=== PATIENT | female | born 1945 | race Caucasian/White ===

== ENCOUNTER 2024-06-19 15:08 | Emergency (ER) | payer OTHER, SELFPAY ==
[2024-06-19 15:19] VITALS: BP 146/97
[2024-06-19 16:52] VITALS: BMI 30.7
--- NOTE | 2024-06-19 17:35 | ED.GENMED ---
History of Present Illness
General
Chief Complaint: Fall
Source: patient and family
Exam Limitations: none
Time Seen by Provider: 06/19/24 16:54
Nursing documentation reviewed up to this point in time: agreed with
History of Present Illness
History of Present Illness:
78-year-old female with a past medical history as document presents to the emergency department for evaluation after mechanical fall. Patient tripped on a step and fell forward landing on her face. No loss of consciousness. She has mild headache,
pain in the face/nose. She has swelling and deviation of the nose towards the left. She did have transient epistaxis. She denies any tongue trauma or dental trauma. She denies any significant neck pain. She denies any new chest, back, abdominal
pain. Denies any new pain in her extremities. Denies being on blood thinners.
Review of Systems
Review of Systems
All Other Systems: ROS reviewed and negative except as documented in HPI and ROS
EENT: Reports other (Facial pain and swelling)
Respiratory: Denies trouble breathing
Cardiac: Denies chest pain
ABD/GI: Denies abdominal pain, nausea or vomiting
Musculoskeletal: Denies neck pain or back pain
Neurological: Reports headache
Phy Exam
Physical Exam
Physical Exam:
General: Awake, alert, GCS 15; no acute distress
Head: Normocephalic, patient has hematoma in the center of her forehead and overlying abrasion; she has bruising and swelling of the nasal bridge with deviation of the nose slightly towards the left; she has some bruising along the right maxillary
region/infraorbital region
Eyes: Conjunctiva normal, EOMI, pupils equal round reactive to light bilaterally
Nose: Swelling and bruising of the nasal bridge with some deviation of the nose towards the left; no septal hematoma
Throat: Airway intact, handling secretions
Neck: Trachea midline, no midline cervical spine tenderness, able to rotate neck through good range of motion with minimal discomfort
Lungs: Breathing comfortably no distress
Heart: No significant chest wall tenderness or instability
Back: No signs of trauma to the back or flank and no tenderness in the thoracic or lumbar spine
Abd: Soft, non distended, nontender
Neuro: No gross deficits
Skin: Forehead abrasion, bruising to the face, minor abrasion to the left paz
Extremities: Abrasion to the left paz but extremities otherwise atraumatic with no tenderness and good range of motion
Scores
Heart Failure Risk
Heart Failure Risk Score: Not Applicable
Heart Score for Chest Pain Patients
STEMI patient?: Not applicable
Withdrawal Assessment of Alcohol
Withdrawal Assessment Completed?: Not applicable
Course
Orders/Labs/Results
Orders:
Orders
06/19/24 15:29
CT Facial Bones W/o Iv Contras Urgent
Comment:
Reason For Exam: pain injury
CT Head W/o Iv Contrast Urgent
Comment:
Reason For Exam: head injury
06/19/24 15:32
CT Cervical Spine W/o Iv Contr Urgent
Comment:
Reason For Exam: fall neck pain
06/19/24 17:11
Tetanus/Diphth/Acelpertussis [Adacel] 0.5 ml IM .ONCE ONE
Vital Signs
Initial and Last Documented VS:
Initial Vital Signs
Temp Pulse Resp BP Pulse Ox
36.7 C 85 16 146/97 96
06/19/24 15:19 06/19/24 15:19 06/19/24 15:19 06/19/24 15:19 06/19/24 15:19
Last Documented Vital Signs
Temp Pulse Resp BP Pulse Ox
36.7 C 85 16 146/97 96
06/19/24 15:19 06/19/24 15:19 06/19/24 15:19 06/19/24 15:19 06/19/24 15:19
MDM/Problems Addressed
Differential Diagnosis Includes:
Nasal fracture, facial fracture, intracranial hemorrhage, cervical spine injury
MDM/Problems Addressed:
78-year-old female presents after mechanical fall with facial trauma. Vitals and exam as above. CT head, face, cervical spine reviewed�patient has displaced nasal fracture but no acute intracranial pathology and no cervical spine injuries.
Discussed with ENT will plan to discharge home on prophylactic antibiotic, advised patient to ice nose aggressively and will refer to ENT office for follow-up Tuesday for delayed reduction of nasal fracture once swelling is improved. Updated
patient's tetanus here. We did discuss incidental findings on CT report and provided a copy of her report in hand as well as fax the report to her primary doctor for follow-up. Patient comfortable with plan as above. All questions answered.
*Radiology
Radiology exam reviewed: radiology read reviewed
*Pulse Oximetry
Patient hypoxic: no
*Critical Care Note
Total Time (30-74mins, 75-104mins- exclusive of procedures): Not Applicable
Data Reviewed
Source: patient and family
Patient Management
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
ED Attending Note
-
Portions of this chart may have been created with voice recognition software.� Occasional wrong word or��sound alike� substitutions may have occurred due to the inherent limitations of voice recognition software.
Discharge Plan
Departure
Patient Disposition: Home (Routine Discharge)
Date of Disposition: 06/19/24
Time of Disposition: 17:25
Patient with high blood pressure during this ER visit?: Yes
Discharge Problem:
Fracture of nasal bone, Skin abrasion
Instructions: Skin Abrasions (DC), Nose Fracture ED
Prescriptions:
New
amoxicillin-pot clavulanate 875-125 mg tablet
1 tab PO BID Qty: 14 0RF
Referrals:
Felix Turner MD [Active] - Call in 1-3 days for appt (ENT--call for appointment on Tuesday)
Activity Restrictions/Additional Instructions:
Thank you for visiting the Emergency Department at [facility].
1. Please schedule a follow up appointment as directed. Call first thing tomorrow morning to make an appointment.
2. If indicated, please take your medications as instructed and indicated on discharge paperwork.
3. If any of your symptoms do not improve, or persist, or become more severe within 6-12 hours, please return to the emergency department for further care.
4. Please return to the emergency department if you develop a headache, neck pain/stiffness, fever greater than 100.4F, chest pain, shortness of breath, persistent nausea, vomiting, slurred speech, difficulty walking, numbness/tingling, weakness,
signs of infection or any other symptoms that are worrisome to you.
Please call [phone] if you have any questions.
Interventions
Interventions:
*Risk Screen - Suicide Last Done: 06/19/24 15:19
*General Assessment Last Done: 06/19/24 16:52
*Neglect/Abuse Screening Last Done: 06/19/24 15:19
*ED COVID-19 Vaccine History Last Done: 06/19/24 16:52
ED-Musculoskeletal Assessment Last Done: 06/19/24 16:52
ED- Neurological Assessment Last Done: 06/19/24 16:52
ED-Skin Assessment Last Done: 06/19/24 16:52
Discharge Date and Time
Print Language: GIBRALTARIAN
[2024-06-19] MEDS: ADACEL 0.5 ML IM (17:36)
== END 2024-06-19 18:13 | disposition home or self-care (01) ==
LOC: EMR 15:08
PROVIDERS: EMERGENCY PHYSICIAN Emergency Medicine; FAMILY PHYSICIAN Internal Medicine
DX: S02.2XXA Fracture of nasal bones, initial encounter for closed fracture (principal); S00.81XA Abrasion of other part of head, initial encounter; S80.812A Abrasion, left lower leg, initial encounter; S00.83XA Contusion of other part of head, initial encounter; W10.9XXA Fall (on) (from) unspecified stairs and steps, initial encounter; Z23 Encounter for immunization
CPT/HCPCS: 90471; 99284; 70450; 70486; 72125; 90715